=== PATIENT | male | born 1970 | race Caucasian/White ===

== ENCOUNTER 2023-08-22 08:32 | Emergency (ER) | payer BC, SELFPAY ==
[2023-08-22] VITALS (7 sets, daily range): BP systolic 122–138; BP diastolic 83–90; PULSE 57–78; RESP 16–24; TEMP 36.8; O2SAT 97–100; BMI 25.8
--- NOTE | 2023-08-22 08:30 | ECG_ITS ---
APPROVED REPORT Exam: Resting ECG HR:66 bpm ECG Measurements Heart Rate 66 AXES MN 168 P 48 QRSd 114 QRS 26 QT 378 T 46 QTc 391 Conclusion SINUS RHYTHM MODERATE INTRAVENTRICULAR CONDUCTION DELAY [110+ ms QRS DURATION] BORDERLINE ECG UNCONFIRMED REPORT Electronically signed by : TYRONE SOLIS, 08/22/2023 17:10:19
--- NOTE | 2023-08-22 08:50 | XR_ITS ---
FINAL REPORT CLINICAL HISTORY: chest tightness, palpitations COMPARISON: None FINDINGS: A single portable view of the chest was obtained. The heart size and pulmonary vascularity are within normal limits. The mediastinum is within normal limits. No acute pulmonary abnormality is identified. The bony thorax is intact. IMPRESSION: No active cardiopulmonary disease. Reviewed, Interpreted and Dictated by Enzo Reyes III, MD Transcribed by Lisha Mercedes Authenticated and [facility]
[2023-08-22] MEDS: ASPIRIN 81MG CHEWABLE TABLET 324 MG PO (08:51)
[2023-08-22 09:01] LABS: Basophils # 0.1 K/mm3 (0-0.2); Basophils % 1.2 % (0.1-2.0); Eosinophils # 0.1 K/mm3 (0.0-0.4); Eosinophils % 1.8 % (0.1-12.0); Hematocrit 43.2 % (42.0-52.0); Hemoglobin 14.3 g/dL (14.1-18.0); Lymphocytes # 1.8 K/mm3 (0.7-4.5); Lymphocytes % 30.4 % (10-50); Mean Corpuscular HGB Conc 33.1 g/dL (31.8-35.4); Mean Corpuscular Hemoglobin 31.9 pg (27.0-31.2); Mean Corpuscular Volume 96.5 fl (80-94); Mean Platelet Volume 7.5 fl (7.4-10.4); Monocytes # 0.4 K/mm3 (0.1-1.0); Monocytes % 6.7 % (1.7-9.3); Neutrophils # 3.5 K/mm3 (1.8-7.8); Neutrophils % 59.9 % (37.0-80.0); Platelet Count 315 K/mm3 (142-424); Red Blood Count 4.48 M/mm3 (4.60-6.20); White Blood Count 5.9 K/mm3 (4.8-10.8)
--- NOTE | 2023-08-22 09:08 | HMH.EDGENADL ---
Discharge Plan Disposition Patient Disposition: Home, Self-Care Condition: Good Prescriptions Prescriptions: No Action omeprazole 20 mg capsule,delayed release(DR/EC) 20 mg PO DAILY Patient Comments: TAKE 1 CAPSULE BY MOUTH ONCE DAILY montelukast 10 mg tablet 10 mg PO DAILY Patient Comments: TAKE 1 TABLET BY MOUTH ONCE DAILY lisinopril-hydrochlorothiazide 10-12.5 mg tablet 1 tab PO DAILY Patient Comments: TAKE 1 TABLET BY MOUTH ONCE DAILY rosuvastatin 5 mg tablet 5 mg PO HS Patient Comments: TAKE 1 TABLET BY MOUTH AT BEDTIME fluticasone furoate-vilanterol [Breo Ellipta] 100-25 mcg/dose blister with device 1 inh INHALATION DAILY Patient Comments: INHALE 1 PUFF DAILY. RINSE MOUTH AND SPIT AFTER EACH USE Referrals Follow up/Referrals: Petr Meehan MD [Primary Care Provider] - See instructions Activity Restrictions/Add. Instructions Additional Instructions/Restrictions: You were evaluated in the ER. You are appropriate for discharge at this time. Wear the Holter monitor as directed, follow-up with cardiology tomorrow as scheduled. Make an appointment with your primary care physician for reevaluation in a few days as well. Return to the ER with new, worsening, or otherwise concerning symptoms. Clinical Impressions Clinical Impression: Palpitations Discharge ED Provider: Darwin Rae Adult HPI General Chief complaint: Arrhythmia/Palpitations Stated complaint: Chest Pain Time Seen by Provider: 08/22/23 08:57 Mode of Arrival: Family Vehicle Source of Information: Patient Limitations: No Limitations Description of Symptoms (Recalled from ER Triage Doc. by RN): Pt c/o chest tightness and feeling of my heart is skipping a beat . States it happened once before but quit. However, this episode has last much longer, started earlier this week. Denies any SOA, nausea, or dizziness. He does not take any blood thinners or aspirin. Denies any hx of heart issues, afib, or arrhythmias. History of Present Illness HPI narrative: 52-year-old male with history of mild hyperlipidemia recently started on a statin presents to the ER with concerns of chest tightness and palpitations. Patient states he had similar symptoms a few years ago after back surgery but they spontaneously resolved after normal cardiac workup with cardiology. Patient states in the last week he started having random palpitations feeling like his heart would skip a beat. He states over the last week it has gotten progressively worse and he is having them up to every 5-6 beats. He is measuring his pulse at home and has noticed this pattern. Patient states he has also been having slight lightheadedness in the last 24 hours associated with increased palpitation burden. He denies any shortness of breath, physical pains, nausea, or dizziness, but does state he feels off . Patient states he is not tolerating exercises well as he normally would either. Patient left work today due to symptom burden and presented to the ER for evaluation. Related Data Home Medications Medication Instructions Recorded Confirmed fluticasone furoate 100 1 inh inhalation DAILY 08/22/23 08/22/23 mcg-vilanterol 25 mcg/dose inhalation powder (Breo Ellipta) lisinopril 10 1 tab PO DAILY 08/22/23 08/22/23 mg-hydrochlorothiazide 12.5 mg tablet montelukast 10 mg tablet 10 mg PO DAILY 08/22/23 08/22/23 omeprazole 20 mg capsule,delayed 20 mg PO DAILY 08/22/23 08/22/23 release rosuvastatin 5 mg tablet 5 mg PO HS 08/22/23 08/22/23 Allergies Allergy/AdvReac Type Severity Reaction Status Date / Time No Known Allergies Allergy Verified 08/22/23 08:50 [facility] Disclaimer: The information contained in this section may have been updated after the patient was seen, as this information can be updated by other users. Medical History (Updated 08/22/23 @ 11:29 by Darwin Rae MD) GERD (gastroesophageal reflux disease) Asthma HLD (hyperlipidemia) HTN (hypertension) Social History Smoking Status: Never smoker alcohol intake: never current occupational status: employed Travel in the last 8 weeks: None ROS Obtained: Yes All systems reviewed & no additional complaints except as documented Constitutional Constitutional: Denies chills, Denies fever(s), Denies headache(s) and Denies weakness Eyes Eyes: Denies change in vision ENT Ears, Nose, Mouth, and Throat: Denies dizziness, Denies headache(s), Denies nasal congestion and Denies sore throat Cardiovascular Cardiovascular: Reports as per HPI, Denies chest pain, Denies dyspnea, Reports irregular heart rhythm, Denies leg edema, Reports lightheadedness and Reports other (Decreased exercise tolerance) Respiratory Respiratory: Denies cough and Denies dyspnea Gastrointestinal Gastrointestingal: Denies constipation, diarrhea, nausea or vomiting Genitourinary Male Genitourinary: Denies difficulty urinating Musculoskeletal Musculoskeletal: Denies arthralgias, Denies myalgias, Denies numbness and Denies tingling Integumentary/Breasts Skin/Breast: Denies change in pigmentation Neurologic Neurologic: Denies dizziness, Denies headache(s), Denies numbness, Denies tingling and Denies weakness Physical Exam General General appearance: alert and in no apparent distress Head Head exam: atraumatic and normocephalic Eye Eye exam: Present PERRL and EOMI ENT ENT exam: Present mucous membranes moist Neck Neck exam: Present normal inspection and full ROM Chest Chest inspection: Present symmetric chest wall rise Respiratory Respiratory exam: Present normal lung sounds bilaterally; Absent respiratory distress, wheezes or stridor Cardiovascular Cardiovascular exam: Present regular rate, irregular rhythm (Patient has consistent beats with obvious given to be approximately 1 out of every 10 beats) and normal heart sounds; Absent systolic murmur Abdominal Exam Abdominal exam: Present soft; Absent distention or tenderness Extremities Exam Extremities exam: Present full ROM Neurological Exam Neurological exam: Present alert and oriented X3; Absent motor sensory deficit Psychiatric Psychiatric exam: Present normal affect and normal mood Skin Skin exam: Present warm and dry Medical Decision Making Flo Inquiry Pt receiving controlled substance: No Vital Signs: 08/22/23 08:32 08/22/23 09:00 08/22/23 09:30 Temperature 98.2 F Temperature Source Oral Pulse Rate 67 66 Pulse Rate [Right] 78 Respiratory Rate 16 19 17 Blood Pressure 128/85 123/83 Blood Pressure [Right Arm] 138/83 Blood Pressure Mean [Right Arm] 101 Blood Pressure Source [Right Arm] Automatic Cuff 02 Sat by Pulse Oximetry 99 98 99 Oxygen Delivery Method Room Air Room Air Room Air 08/22/23 10:00 08/22/23 10:30 08/22/23 11:00 Temperature Temperature Source Pulse Rate 57 L 60 65 Pulse Rate [Right] Respiratory Rate 18 18 24 Blood Pressure 122/87 125/88 130/90 Blood Pressure [Right Arm] Blood Pressure Mean [Right Arm] Blood Pressure Source [Right Arm] 02 Sat by Pulse Oximetry 97 98 98 Oxygen Delivery Method Room Air Room Air Room Air Lab Data Lab Results 08/22/23 08:34: WBC 5.9, RBC 4.48 L, Hgb 14.3, Hct 43.2, MCV 96.5 H, MCH 31.9 H, MCHC 33.1, RDW 14.0, Plt Count 315, MPV 7.5, Neut % (Auto) 59.9, Lymph % (Auto) 30.4, [place] % (Auto) 6.7, Eos % (Auto) 1.8, Baso % (Auto) 1.2, Neut # (Auto) 3.5, Lymph # (Auto) 1.8, [place] # (Auto) 0.4, Eos # (Auto) 0.1, Baso # (Auto) 0.1, Sodium 141, Potassium 3.9, Chloride 102, Carbon Dioxide 30, Anion Gap 12.9, BUN 16, Creatinine 1.10, Estimated Creat Clear 89, Estimated GFR 70, Est GFR ( Amer) 84, Glucose 104 H, Calcium 9.7, Total Bilirubin 0.6, AST 57, ALT 85 H, Alkaline Phosphatase 65, Troponin I < 0.01, Total Protein 6.9, Albumin 4.3, Globulin 2.6, Albumin/Globulin Ratio 1.7, TSH 1.50, Free T4 0.94 08/22/23 08:34 08/22/23 08:34 Orders (Tests/Meds): ED MEDICATIONS Discontinued Medications Generic Name Dose Route Start Last Admin Trade Name Freq PRN Reason Stop Dose Admin Aspirin 324 mg 08/22/23 08:51 08/22/23 08:51 Aspirin 81mg Chewable Tablet PO 08/22/23 08:52 324 mg ONCE ONE Administration ORDERS Category Date Time Status CA 2 week event monitor Routine Exams 08/22/23 10:49 Completed CXR --portable [XR chest portable] Stat Exams 08/22/23 08:50 Completed Complete Blood Count Auto Diff Stat Lab 08/22/23 08:34 Completed Comprehensive Metabolic Panel Stat Lab 08/22/23 08:34 Completed Free T4 (Free Thyroxine) Stat Lab 08/22/23 08:34 Completed TSH [Thyroid Stimulating Hormone] Stat Lab 08/22/23 08:34 Completed Troponin I Q3H Lab 08/22/23 12:00 Ordered Troponin I Q3H Lab 08/22/23 15:00 Ordered Troponin I Stat Lab 08/22/23 08:34 Completed HEART Score History (anamnesis): Slightly suspicious ECG: Normal Age: 45-65 years Risk factors: 1-2 risk factors Troponin: </= normal limit HEART Score: 2 Medical Decision Narrative: In summary, this 52year old male presents to the emergency department today with chest pressure and palpitations associated with lightheadedness and decreased exercise tolerance in the last week. Comorbidities of current condition include newly diagnosed hyperlipidemia which is a comorbidity of current condition and increases his overall morbidity. On initial evaluation patient is hemodynamically stable, afebrile, resting comfortably. On exam, patient has approximately 1 out of every 10 beats that is not perfusing, no murmur. Differential diagnosis includes but is not limited to electrolyte abnormality, dehydration, arrhythmia, ACS, considered pneumothorax though I have lower concern for this. Based on these concerns, I ordered cardiac workup and basic labs. ECG personally interpreted demonstrates normal sinus rhythm, rate 66, normal axis, normal intervals no STEMI. Repeat ECG captured an episode of his irregular heartbeat shows sinus rhythm, occasional sinus arrhythmia with premature complex normal TN and QTc rate 68. Labs personally reviewed demonstrate undetectable troponin reassuring in the setting of low heart score, No leukocytosis or anemia, no actionable electrolyte abnormalities, reassuring thyroid studies Chest x-ray personally interpreted does not demonstrate any acute intrathoracic abnormality, see radiology read for final interpretation. On reassessment patient continues to be stable. I discussed patient's case and arrhythmia with cardiology. Susi with cardiology evaluated the patient and applied Holter monitor. She has patient scheduled for outpatient follow-up tomorrow. Patient is comfortable with this plan and appropriate for discharge at this time. Given the duration of symptoms I do not believe he requires serial troponins. Patient was given instructions on symptomatic management, follow up instructions, and return precautions for the emergency department. Patient indicated understanding and was discharged in stable condition. Critical Care Critical Care Time Critical Care Time: No
[2023-08-22 09:17] LABS: Alanine Aminotransferase 85 U/L (12-78); Albumin Level 4.3 g/dl (3.5-5.0); Albumin/Globulin Ratio 1.7 (1.1-1.8); Alkaline Phosphatase 65 U/L (38-126); Anion Gap 12.9 mEq/L (5-15); Aspartate Amino Transferase 57 U/L (17-59); Bilirubin,Total 0.6 mg/dl (0.2-1.3); Blood Urea Nitrogen 16 mg/dl (9-20); Calcium 9.7 mg/dl (8.4-10.2); Carbon Dioxide 30 mmol/L (22.0-30.0); Chloride 102 mmol/L (98-107); Creatinine Clearance Estimated 89 mL/min (50-200); Estimated Glomerular Filt Rate 70 ml/min (>60); GFR (African American) 84 ML/MIN (>60); Globulin 2.6 g/dL (1.3-3.2); Glucose 104 mg/dl (74-100); Potassium 3.9 mmoL/L (3.5-5.1); Sodium 141 mmol/L (136-145); Total Protein,Serum 6.9 g/dl (6.3-8.2)
--- NOTE | 2023-08-22 09:20 | ECG_ITS ---
APPROVED REPORT Exam: Resting ECG HR:68 bpm ECG Measurements Heart Rate 68 AXES MT 167 P 40 QRSd 100 QRS 14 QT 395 T 35 QTc 412 Conclusion SINUS RHYTHM WITH OCCASIONAL SUPRAVENTRICULAR PREMATURE COMPLEXES BORDERLINE ECG UNCONFIRMED REPORT Electronically signed by : TYRONE SOLIS, 08/22/2023 17:08:49
[2023-08-22 09:33] LABS: Troponin I < 0.01 ng/ml (0.00-0.034)
[2023-08-22 10:32] LABS: Free T4 (Free Thyroxine) 0.94 ng/dl (0.78-2.19)
--- NOTE | 2023-08-22 10:46 | PC.NURSE ---
speaking with Susi
--- NOTE | 2023-08-22 10:51 | PC.NURSE ---
Susi Faye APRN from cardiology at bedside
--- NOTE | 2023-08-22 11:06 | PC.NURSE ---
RESP CARE NOTE: 2 week cardiac event monitor placed on patient, with instructions for use explained. Pt states understanding and returns demonstration of use.
--- NOTE | 2023-08-22 13:44 | P.CONCA_ITS ---
History of Present Illness History of Present Illness Consult date: 08/22/23 Requesting physician: Darwin Rae Chief complaint: Palpitation History of present illness: This is a 52-year-old white male with past medical history of hyperlipidemia and palpitations presented to emergency department with complaints of palpitations associated with chest heaviness intermittently x a few weeks.. Patient states he had similar symptoms a few years ago after back surgery but they spontaneously resolved after normal cardiac workup with cardiology [facility]. Patient states in the last few weeks he started having random palpitations feeling like his heart would skip a beat. He states over the last week it has gotten progressively worse and he is having them up to every 5-6 beats. He is measuring his pulse at home and has noticed this pattern. Patient states he has also been having slight lightheadedness in the last 24 hours associated with increased palpitation burden. He denies any shortness of breath, physical pains, nausea, or dizziness, but does state he feels off . Patient states he is not tolerating exercises well as he normally would either. Patient left work today due to symptom burden and presented to the ER for evaluation. Upon presentation to emergency department EKG revealed a sinus rhythm of 66. Labs as follow: WBC 5.9, hemoglobin 14.3, sodium 141, potassium 3.9, creatinine 1.1 troponin negative. Chest x-ray was negative for acute cardiopulmonary process. A second EKG was performed which showed sinus rhythm with occasional PACs. [facility] Disclaimer: The information contained in this section may have been updated after the patient was seen, as this information can be updated by other users. Medical History (Updated 08/22/23 @ 14:14 by Susi Pate APRN) GERD (gastroesophageal reflux disease) Asthma HLD (hyperlipidemia) HTN (hypertension) Social History (Updated 08/22/23 @ 11:30 by Darwin Rae MD) Smoking Status: Never smoker alcohol intake: never current occupational status: employed Travel in the last 8 weeks: None Review of Systems Constitutional Constitutional: Denies headache(s) and Denies weakness ENT Ears, Nose, Mouth, and Throat: Denies dizziness and Denies headache(s) *Cardiovascular Cardiovascular: Reports chest pain Comments: palpitations *Musculoskeletal Musculoskeletal: Denies numbness and Denies tingling *Neurologic Neurologic: Denies dizziness, Denies headache(s), Denies numbness, Denies tingling and Denies weakness Exam Data for Last 24 hours Vital signs and Labs for Last 24 Hours: Temp Pulse Resp BP Pulse Ox O2 Del Method 98.2 F 75 17 123/86 98 Room Air 08/22/23 11:31 08/22/23 11:31 08/22/23 11:31 08/22/23 11:31 08/22/23 11:00 08/22/23 11:31 Laboratory Results - last 24 hr 08/22/23 08:34: WBC 5.9, RBC 4.48 L, Hgb 14.3, Hct 43.2, MCV 96.5 H, MCH 31.9 H, MCHC 33.1, RDW 14.0, Plt Count 315, MPV 7.5, Neut % (Auto) 59.9, Lymph % (Auto) 30.4, [place] % (Auto) 6.7, Eos % (Auto) 1.8, Baso % (Auto) 1.2, Neut # (Auto) 3.5, Lymph # (Auto) 1.8, [place] # (Auto) 0.4, Eos # (Auto) 0.1, Baso # (Auto) 0.1, Sodium 141, Potassium 3.9, Chloride 102, Carbon Dioxide 30, Anion Gap 12.9, BUN 16, Creatinine 1.10, Estimated Creat Clear 89, Estimated GFR 70, Est GFR ( Amer) 84, Glucose 104 H, Calcium 9.7, Total Bilirubin 0.6, AST 57, ALT 85 H, Alkaline Phosphatase 65, Troponin I < 0.01, Total Protein 6.9, Albumin 4.3, Globulin 2.6, Albumin/Globulin Ratio 1.7, TSH 1.50, Free T4 0.94 I & O for Last 24 hours: Intake & Output 08/19/23 08/20/23 08/21/23 08/22/23 23:59 23:59 23:59 23:59 Weight 180 lb Constitutional Constitutional: no acute distress *Routine Respiratory Exam Respiratory: Present CTA bilaterally and symmetric chest movement *Routine Cardiovascular Exam Cardiovascular: Present RRR, Normal S1 and Normal S2 *Routine Abdominal Exam Abdominal: Present soft and normoactive bowel sounds; Absent tenderness *Routine Extremities Exam Extremities: Present full ROM and normal capillary refill; Absent edema *Routine Skin Exam Skin: Present intact, dry and warm Detailed Neck Exam: Thyroids Thyroid: Absent bruit Meds Home Medications and Allergies Home Medications Medication Instructions Recorded Confirmed Type fluticasone furoate 100 1 inh inhalation DAILY 08/22/23 08/22/23 History mcg-vilanterol 25 mcg/dose inhalation powder (Breo Ellipta) lisinopril 10 1 tab PO DAILY 08/22/23 08/22/23 History mg-hydrochlorothiazide 12.5 mg tablet montelukast 10 mg tablet 10 mg PO DAILY 08/22/23 08/22/23 History omeprazole 20 mg capsule,delayed 20 mg PO DAILY 08/22/23 08/22/23 History release rosuvastatin 5 mg tablet 5 mg PO HS 08/22/23 08/22/23 History New Prescriptions to Start Prescriptions: Allergies Allergy/AdvReac Type Severity Reaction Status Date / Time No Known Allergies Allergy Verified 08/22/23 08:50 Assessment and Plan *Assessment and plan (1) Palpitations: Status: Acute Category: Medical Code(s): R00.2 - Palpitations (2) Chest pain: Status: Acute Category: Medical Code(s): R07.9 - Chest pain, unspecified Plan Palpitations Chest pain EKG shows NSR with occasional pvcs Trop negative TSH normal Reports normal cardiac workup at [facility] a few years ago when was having same symptoms Denies syncope Denies dm Denies tobacco use Discussed outpatient eval vs. admission and observation, patient would like to go home. CV summary: Please dc patient home in 2 week event monitor and have patient follow up in [facility] tomorrow at 1445. Will need additional outpatient testing including echo. Patient advised if symptoms persist or become worse to return to ER, he is agreeable.
== END 2023-08-22 11:41 | disposition home or self-care (01) ==
PROVIDERS: Emergency Provider Emergency Medicine; PCP Family Medicine
DX: R00.2 Palpitations (principal); R07.9 Chest pain, unspecified; I49.1 Atrial premature depolarization; I10 Essential (primary) hypertension; E78.5 Hyperlipidemia, unspecified; K21.9 Gastro-esophageal reflux disease without esophagitis
CPT/HCPCS: 71045; 80053; 84439; 84443; 84484; 85025; 93005; 93270; 99284